=== PATIENT | male | born 2000 | race Caucasian/White ===

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

== ENCOUNTER → 2024-05-01 | Outpatient (CLI) | payer OTHER | LOC: M PLAIMG 12:42 | PROVIDERS: ATTEND Internal Medicine | DX: R94.31 Abnormal electrocardiogram [ECG] [EKG] (principal) ==